=== PATIENT | female | born 1960 | race Caucasian/White ===

== ENCOUNTER → 2016-06-15 | Outpatient (CLI) | payer OTHER ==
[~2016-06-15] MED LIST: CALCIUM600 MG PO; CLARITIN 10MG T10 MG PO; FENOFIBRATE160 MG PO; LO-DOSE ASPIRIN81 MG PO; MELOXICAM7.5 MG PO; MIRALAX17 GM PO; NAPROXEN250 MG PO; NORCO 7.5-3251 EACH PO; PRILOSEC OTC20 MG PO; VITAMIN D350000 UNIT PO; VOLTREN XR 100100 MG PO; ZOLOFT50 MG PO; ZYLOPRIM 100 M100 MG PO
[2016-06-15 10:32] LABS: HEMOGLOBIN 13.5 gm/dl (12.3-15.3); RED BLOOD COUNT 4.28 M/UL (4.00-5.10); WHITE BLOOD COUNT 8.3 K/UL (4.5-11.0)
== END ==
LOC: OPSV2 10:00
PROVIDERS: Obstetrics & Gynecology
DX: Z01.812 Encounter for preprocedural laboratory examination (principal); N81.4 Uterovaginal prolapse, unspecified
CPT/HCPCS: 81001; 85025

== ENCOUNTER 2016-06-24 06:25 | Day surgery (SDC) | payer OTHER ==
[~2016-06-24] VITALS: Ht 157.5 cm; Wt 62.6 kg
[2016-06-24] MEDS ORDERED: CLARITIN 10MG T10 MG PO (07:06)
[2016-06-24] MEDS ORDERED: ZYLOPRIM 100 M100 MG PO (07:07)
[2016-06-24] MEDS ORDERED: LO-DOSE ASPIRIN81 MG PO (07:07)
[2016-06-24] MEDS ORDERED: CALCIUM600 MG PO (07:08)
[2016-06-24] MEDS ORDERED: VOLTREN XR 100100 MG PO (07:09)
[2016-06-24] MEDS ORDERED: MELOXICAM7.5 MG PO (07:10)
[2016-06-24] MEDS ORDERED: FENOFIBRATE160 MG PO (07:10)
[2016-06-24] MEDS ORDERED: PRILOSEC OTC20 MG PO (07:11)
[2016-06-24] MEDS ORDERED: ZOLOFT50 MG PO (07:11)
[2016-06-24] MEDS ORDERED: VITAMIN D350000 UNIT PO (07:13)
[2016-06-25 05:53] LABS: HEMOGLOBIN 10.7 gm/dl (12.3-15.3)
[2016-06-25] MEDS ORDERED: NAPROXEN250 MG PO (12:35)
[2016-06-25] MEDS ORDERED: NORCO 7.5-3251 EACH PO (12:37)
[2016-06-25] MEDS ORDERED: MIRALAX17 GM PO (12:37)
== END 2016-06-25 13:18 | disposition home or self-care (01) ==
LOC: OR 06:25 → MED SURG 4 12:18 → OR 06-25 13:18
PROVIDERS: Obstetrics & Gynecology
PROC: 0UTC4ZZ Resection of Cervix, Percutaneous Endoscopic Approach (ICD-10-PCS; 2016-06-24)
PROC: 0UT24ZZ Resection of Bilateral Ovaries, Percutaneous Endoscopic Approach (ICD-10-PCS; 2016-06-24)
PROC: 0UT74ZZ Resection of Bilateral Fallopian Tubes, Percutaneous Endoscopic Approach (ICD-10-PCS; 2016-06-24)
PROC: 0USG4ZZ Reposition Vagina, Percutaneous Endoscopic Approach (ICD-10-PCS; 2016-06-24)
PROC: 0UT94ZZ Resection of Uterus, Percutaneous Endoscopic Approach (ICD-10-PCS; principal; 2016-06-24 08:25)
DX: N81.4 Uterovaginal prolapse, unspecified (principal); N72 Inflammatory disease of cervix uteri; N81.82 Incompetence or weakening of pubocervical tissue; K21.9 Gastro-esophageal reflux disease without esophagitis; M19.90 Unspecified osteoarthritis, unspecified site; F32.9 Major depressive disorder, single episode, unspecified; F17.210 Nicotine dependence, cigarettes, uncomplicated; Z82.49 Family history of ischemic heart disease and other diseases of the circulatory system; Z88.8 Allergy status to other drugs, medicaments and biological substances; Z79.899 Other long term (current) drug therapy; Z98.51 Tubal ligation status
CPT/HCPCS: 36415; 85014; 85018; C1769; J0690; J1100; J2250; J2405; J2710; J2765; J2795; J3010; J7120; Q0162